=== PATIENT | male | born 1990 ===

== ENCOUNTER 2017-11-20 17:51 | Emergency (ER) | payer SELFPAY ==
--- NOTE | 2017-11-20 18:58 | RAD ---
RIGHT SHOULDER THREE VIEWS: History: Right shoulder pain. FINDINGS: Acromioclavicular and glenohumeral alignment are maintained. No acute fracture, dislocation, or evide nce of osseous erosions. IMPRESSION: No acute osseous abnormalities are demonstrated. POS: [facility]
== END 2017-11-20 18:46 | disposition home or self-care (01) ==
LOC: ERS 17:51
DX: S46.011A Strain of muscle(s) and tendon(s) of the rotator cuff of right shoulder, initial encounter (principal); X58.XXXA Exposure to other specified factors, initial encounter